=== PATIENT | female | born 1945 ===

== ENCOUNTER 2017-06-16 16:14 | Inpatient (IN) | payer MEDICARE ==
--- NOTE | 2017-06-16 16:41 | ED PDOC ---
HPI: General Adult Time Seen by Provider: 06/16/17 16:38 Chief Complaint (Nursing): Altered Mental Status Chief Complaint (Provider): AMS History Per: Patient (71 Y/O FEMALE RECENT D/C FROM [facility] TO ASSISTED BROUGHT TO ED FOR EVALUATION AFTER ASSISTED CALLED DAUGHTER. PATIENT HAS H/O DEMENTIA/ DIABETES AND DAUGHTER IS ATTEMPTING TO OBTAIN POWER OF BACK HANGER. NO OTHER COMPLAINTS. PATIENT UNSURE WHY SHE WAS IN [facility].) Past Medical History Reviewed: Historical Data, Nursing Documentation, Vital Signs Vital Signs: Last Vital Signs Temp 98.0 F 06/16/17 16:19 Pulse 94 H 06/16/17 16:19 Resp 16 06/16/17 16:19 BP 126/48 L 06/16/17 16:19 Pulse Ox 96 06/16/17 16:41 - Family History Family History: States: No Known Family Hx - Home Medications Home Medications: Ambulatory Orders Medication Instructions Recorded Unobtainable 06/16/17 - Allergies Allergies/Adverse Reactions: Allergies Allergy/AdvReac Type Severity Reaction Status Date / Time Penicillins Allergy RASH Verified 06/16/17 16:19 Review of Systems ROS Statement: Except As Marked, All Systems Reviewed And Found Negative Physical Exam - Reviewed Nursing Documentation Reviewed: Yes Vital Signs Reviewed: Yes - Physical Exam Appears: Positive for: Well, Non-toxic, No Acute Distress Head Exam: Positive for: ATRAUMATIC, NORMAL INSPECTION, NORMOCEPHALIC Skin: Positive for: Normal Color, Warm, DRY Eye Exam: Positive for: EOMI, Normal appearance, PERRL ENT: Positive for: Normal ENT Inspection Neck: Positive for: Normal, Painless ROM Cardiovascular/Chest: Positive for: Regular Rate, Rhythm Respiratory: Positive for: CNT, Normal Breath Sounds Gastrointestinal/Abdominal: Positive for: Normal Exam, Bowel Sounds, Soft Back: Positive for: Normal Inspection Extremity: Positive for: Normal ROM Neurologic/Psych: Positive for: Alert, Oriented - Laboratory Results Result Diagrams: 06/16/17 18:00 06/16/17 18:00 - ECG O2 Sat by Pulse Oximetry: 96 - Progress ED Course And Treament: DISCUSSED WITH DAUGHTER [phone] PATIENT HAS H/O DEMENTIA/DIABETES AND WAS ADMITTED TO [facility] FOR HYPERGLYCEMIA. PATIENT WAS TRANSFERRED TO [facility] BUT WAS D/C HOME AND FOUND AT HOMELESS ASSISTED. DAUGHTER UPSET AND STATES SHE IS IN PROCESS OF OBTAINING POWER OF BACK HANGER. DOES NOT FEEL PATIENT CAN BE D/C HOME. AT CURRENT MOMENT, DAUGHTER IS LIVING WITH FRIEND AND IS AWAITING APPROVAL FOR APARTMENT. DAUGHTER AND OTHER WERE ORIGINALLY LIVING IN [place] IN [facility]. NS 1 LITER 500 ML PER HOUR ADMITTED TO DR. HERNÁNDEZ CT HEAD: IMPRESSION: No definite acute intracranial hemorrhage, mass effect or cortical edema. Follow -up MRI or CT are available if clinically warranted. Potential normal pressure hydrocephalus. Central atrophy is the differential diagnosis. WILL OBTAIN NEURO CONSULT FOR NORMOHYDROCEPHALUS FOUND ON CT WILL OBTAIN PSYCH CONSULT FOR ALTERED MENTAL STATUS/POSSIBLE DEMENTIA. Disposition - Clinical Impression Clinical Impression: Altered mental status, Normal pressure hydrocephalus - Patient ED Disposition Is Patient to be Admitted: Yes - Disposition Disposition Time: 19:29 Condition: FAIR Forms: [employer] (Upper Sorbian) - Pt Status Changed To: Hospital Disposition Of: Inpatient - Admit Certification Admit to Inpatient:: After my assessment, the patient will require hospitalization for at least two midnights. This is because of the severity of symptoms shown, intensity of services needed, and/or the medical risk in this patient being treated as an outpatient.
[2017-06-16 18:15] LABS: BASO # 0.1 K/uL (0.0-0.2); EOS # 0.1 K/uL (0.0-0.7); EOS % 0.9 % (0.0-4.0); HEMOGLOBIN 14.5 g/dL (12.0-16.0); LYMPH # 2.3 K/uL (1.0-4.3); LYMPH % 26.6 % (20.0-40.0); MEAN CELL VOLUME 86.1 fl (81.0-99.0); MEAN CORPUSCULAR HEMOGLOBIN 29.8 pg (27.0-31.0); MEAN CORPUSCULAR HGB CONC 34.6 g/dL (33.0-37.0); MEAN PLATELET VOLUME 7.8 fl (7.2-11.7); MONO # 0.5 K/uL (0.0-0.8); MONO % 5.9 % (0.0-10.0); NEUT # 5.6 K/uL (1.8-7.0); NEUT % 65.6 % (50.0-75.0); NRBC % 0.2 % (0.0-0.0); RBC 4.88 Mil/uL (3.80-5.20); RED CELL DISTRIBUTION WIDTH 14.1 % (11.5-14.5); WHITE BLOOD COUNT 8.5 K/uL (4.8-10.8)
[2017-06-16 18:26] LABS: ALBUMIN 3.7 g/dL (3.5-5.0); ALT/SGPT 31 U/L (9-52); AST/SGOT 17 U/L (14-36); BLOOD UREA NITROGEN 15 mg/dl (7-17); CALCIUM 9.5 mg/dL (8.4-10.2); GFR AFRICAN-AMERICAN > 60; GFR NON-AFRICAN AMERICAN > 60
--- NOTE | 2017-06-16 18:48 | CT ---
PROCEDURE: CT HEAD WITHOUT CONTRAST. HISTORY: ams COMPARISON: None available. TECHNIQUE: Axial computed tomography images were obtained through the head/brain without intravenous contrast. Radiation dose: Total exam DLP = 1672.80 mGy-cm. This CT exam was performed using one or more of the following dose reduction techniques: Automated exposure control, adjustment of the mA and/or kV according to patient size, and/or use of iterative reconstruction technique. FINDINGS: HEMORRHAGE: No intracranial hemorrhage. BRAIN: Good corticomedullary differentiation is seen. Diffuse expansion of the ventriculosulcal and cisternal spaces is appreciated with white matter lucency compatible with diffuse cerebral atrophy and chronic microangiopathy. No suspicious extra-axial fluid collection is identified and the midline brain anatomy appears grossly nonfocal as imaged. There is no mass effect throughout. VENTRICLES: Ventricular volume is expanded data context to the cisternal and sulcal prominence in a pattern that is suspicious for potential normal pressure hydrocephalus. Clinically correlate further. CALVARIUM: Unremarkable. PARANASAL SINUSES: Right maxi sinus polyp or cyst noted. MASTOID AIR CELLS: Unremarkable as visualized. No inflammatory changes. OTHER FINDINGS: None. IMPRESSION: No definite acute intracranial hemorrhage, mass effect or cortical edema. Follow-up MRI or CT are available if clinically warranted. Potential normal pressure hydrocephalus. Central atrophy is the differential diagnosis.
[2017-06-16] MEDS ORDERED: Sodium Chloride 0.9% 1,000 ML IV STA (18:59)
[2017-06-16 22:20] LABS: URINE BACTERIA FEW (<OCC); URINE BILIRUBIN NEGATIVE (NEGATIVE); URINE BLOOD NEGATIVE (NEGATIVE); URINE CLARITY CLEAR (Clear); URINE COLOR YELLOW (YELLOW); URINE GLUCOSE (UA) >=500 mg/dL (Normal); URINE LEUKOCYTE ESTERASE TRACE Leu/uL (Negative); URINE NITRATE POSITIVE (NEGATIVE); URINE PROTEIN NEGATIVE (NEGATIVE); URINE UROBILINOGEN 0.2-1.0 mg/dL (0.2-1.0)
--- NOTE | 2017-06-16 23:06 | RAD ---
HISTORY: ROUTINE COMPARISON: No prior. TECHNIQUE: Chest PA and lateral FINDINGS: LUNGS: No active pulmonary disease. PLEURA: No significant pleural effusion identified. No pneumothorax apparent. CARDIOVASCULAR: Normal. OSSEOUS STRUCTURES: No significant abnormalities. VISUALIZED UPPER ABDOMEN: Normal. OTHER FINDINGS: None. IMPRESSION: No acute cardiopulmonary disease appreciated.
[2017-06-17] MEDS: Azithromycin 500 MG in Sodium Chloride 0.9% 250 ML IVPB SCH ×3 (01:00→23:50)
[2017-06-17] MEDS: Dextrose 5%/0.45% NS 1,000 ML IV SCH ×2 (01:36→16:50)
[2017-06-17] MEDS: Insulin Lispro (humaLOG) 100 Units/ml Inj SC SCH ×3 (12:07→23:49)
--- NOTE | 2017-06-17 13:52 | CP.PCM.CON ---
History of Present Illness - History of Present Illness History of Present Illness: Psychiatry consult note CC: "My daughter brought me here." HPI: 71 yo female w/ h/o DM, HTN, HLD, Dementia, was previously admitted to [facility], was discharged and found at a homeless senior care. As per records patient's daughter is in the process of obtained POA. Patient is a limited historian. She does not know why her daughter brought her to a hospital. She denies acute depression/anxiety/AH/VH/SI/HI and does not believe she needs acute psychiatric admission. A + O x self, location, not date. She knew [employer] [facility]. She could not state which medications she takes or give pertinent medical information. PPHx: Reports h/o depression, but patient is a poor historian PMHx: DM, HTN, HLD, Dementia, patient is a poor historian so unclear if there is more medical history ALL: PCN SHx: Denies drugs/ etoh, has a daughter who she believe is trying to take her money (possibly the POA?) MSE: A + O x 2, calm, cooperative, obese, psychomotor delayed due to body habitus, mood/affect- neutral, thought process- coherent, but non-linear/ not relevant, denies AH/VH, denies SI/HI, poor I/J Impression: 71 yo female w/ unclear history presents w/ altered mental status, denies acute psychiatric complaints, but patient likely has dementia. -Would recommend that primary team obtain collateral history from patient's family to determine her baseline of functioning and disposition -Would recommend neurology consult; if they are in agreement, patient may benefit from starting Aricept or Namenda -Would recommend that primary team obtain [facility] records [facility] -At this time, acute psychiatric admission does not seem indicated; please call for re-consult if patient's behavior or symptoms change Past Patient History - Past Medical History & Family History Past Medical History?: Yes - Past Social History Smoking Status: Never Smoked - NEUROLOGICAL Hx Dementia: Yes - ENDOCRINE/METABOLIC Hx Diabetes Mellitus Type 2: Yes - HEMATOLOGICAL/ONCOLOGICAL Hx AIDS: No Hx Human Immunodeficiency Virus (HIV): No - MUSCULOSKELETAL/RHEUMATOLOGICAL Hx Falls: No - PSYCHIATRIC Hx Substance Use: No (unknown) Meds Allergies/Adverse Reactions: Allergies Allergy/AdvReac Type Severity Reaction Status Date / Time Penicillins Allergy RASH Verified 06/16/17 16:19 - Medications Medications: Current Medications Azithromycin 500 mg/ Sodium (Chloride) 250 mls @ 250 mls/hr IVPB DAILY@0100 [facility] PRN Reason: Protocol Last Admin: 06/17/17 01:36 Dose: 250 mls/hr Dextrose/Sodium Chloride (Dextrose 5%/0.45% Ns 1000 Ml) 1,000 mls @ 80 mls/hr IV .[id number] [facility] Stop: 06/18/17 01:02 Last Admin: 06/17/17 01:36 Dose: 80 mls/hr Insulin Human Lispro (Humalog) 0 units SC ACHS [facility] PRN Reason: Protocol Last Admin: 06/17/17 12:07 Dose: Not Given Results - Vital Signs Recent Vital Signs: Last Vital Signs Temp 97.9 F 06/17/17 12:45 Pulse 86 06/17/17 12:45 Resp 18 06/17/17 12:45 BP 164/91 H 06/17/17 12:45 Pulse Ox 99 06/17/17 12:45 - Labs Result Diagrams: 06/16/17 18:00 06/16/17 18:00 Labs: Laboratory Results - last 24 hr 06/16/17 06/16/17 06/16/17 17:21 18:00 18:00 WBC 8.5 RBC 4.88 Hgb 14.5 Hct 42.0 MCV 86.1 MCH 29.8 MCHC 34.6 RDW 14.1 Plt Count 301 MPV 7.8 Neut % (Auto) 65.6 Lymph % (Auto) 26.6 [place] % (Auto) 5.9 Eos % (Auto) 0.9 Baso % (Auto) 1.0 Neut # (Auto) 5.6 Lymph # (Auto) 2.3 [place] # (Auto) 0.5 Eos # (Auto) 0.1 Baso # (Auto) 0.1 Sodium 140 Potassium 3.7 Chloride 102 Carbon Dioxide 25 Anion Gap 17 BUN 15 Creatinine 0.7 Est GFR ( Amer) > 60 Est GFR (Non-Af Amer) > 60 POC Glucose (mg/dL) 319 H Random Glucose 371 H Calcium 9.5 Total Bilirubin 0.7 AST 17 ALT 31 Alkaline Phosphatase 83 Total Protein 7.2 Albumin 3.7 Globulin 3.5 Albumin/Globulin Ratio 1.0 Urine Color Urine Clarity Urine pH Ur Specific [place] Urine Protein Urine Glucose (UA) Urine Ketones Urine Blood Urine Nitrate Urine Bilirubin Urine Urobilinogen Ur Leukocyte Esterase Urine RBC (Auto) Urine Microscopic WBC Urine Bacteria 06/16/17 06/16/17 06/17/17 22:00 22:16 05:51 WBC RBC Hgb Hct MCV MCH MCHC RDW Plt Count MPV Neut % (Auto) Lymph % (Auto) [place] % (Auto) Eos % (Auto) Baso % (Auto) Neut # (Auto) Lymph # (Auto) [place] # (Auto) Eos # (Auto) Baso # (Auto) Sodium Potassium Chloride Carbon Dioxide Anion Gap BUN Creatinine Est GFR ( Amer) Est GFR (Non-Af Amer) POC Glucose (mg/dL) 298 H 304 H Random Glucose Calcium Total Bilirubin AST ALT Alkaline Phosphatase Total Protein Albumin Globulin Albumin/Globulin Ratio Urine Color Yellow Urine Clarity Clear Urine pH 6.0 Ur Specific [place] 1.026 Urine Protein Negative Urine Glucose (UA) >=500 Urine Ketones Trace Urine Blood Negative Urine Nitrate Positive H Urine Bilirubin Negative Urine Urobilinogen 0.2-1.0 Ur Leukocyte Esterase Trace Urine RBC (Auto) 1 Urine Microscopic WBC 7 H Urine Bacteria Few H 06/17/17 11:07 WBC RBC Hgb Hct MCV MCH MCHC RDW Plt Count MPV Neut % (Auto) Lymph % (Auto) [place] % (Auto) Eos % (Auto) Baso % (Auto) Neut # (Auto) Lymph # (Auto) [place] # (Auto) Eos # (Auto) Baso # (Auto) Sodium Potassium Chloride Carbon Dioxide Anion Gap BUN Creatinine Est GFR ( Amer) Est GFR (Non-Af Amer) POC Glucose (mg/dL) 345 H Random Glucose Calcium Total Bilirubin AST ALT Alkaline Phosphatase Total Protein Albumin Globulin Albumin/Globulin Ratio Urine Color Urine Clarity Urine pH Ur Specific [place] Urine Protein Urine Glucose (UA) Urine Ketones Urine Blood Urine Nitrate Urine Bilirubin Urine Urobilinogen Ur Leukocyte Esterase Urine RBC (Auto) Urine Microscopic WBC Urine Bacteria
--- NOTE | 2017-06-17 13:54 | CP.PCM.CON ---
History of Present Illness - History of Present Illness History of Present Illness: Neurology Consult Note: Mrs. Beckford is a 71-year-old woman with a history of dementia, who was brought in to the ED from the halfway for altered mental status. Labs showed hyperglycemia in the 300's range, and a UTI. She was started on azithromycin. Neurology was consulted for the encephalopathy. CT head showed potential normal pressure hydrocephalus. The patient informed me that she has been diagnosed with NPH before and was to be scheduled with neurosurgery, but this has not happened yet. She denied incontinence, did complain of difficulty with ambulation. Past Patient History - Past Medical History & Family History Past Medical History?: Yes - Past Social History Smoking Status: Never Smoked - NEUROLOGICAL Hx Dementia: Yes - ENDOCRINE/METABOLIC Hx Diabetes Mellitus Type 2: Yes - HEMATOLOGICAL/ONCOLOGICAL Hx AIDS: No Hx Human Immunodeficiency Virus (HIV): No - MUSCULOSKELETAL/RHEUMATOLOGICAL Hx Falls: No - PSYCHIATRIC Hx Substance Use: No (unknown) Meds Allergies/Adverse Reactions: Allergies Allergy/AdvReac Type Severity Reaction Status Date / Time Penicillins Allergy RASH Verified 06/16/17 16:19 - Medications Medications: Current Medications Azithromycin 500 mg/ Sodium (Chloride) 250 mls @ 250 mls/hr IVPB DAILY@0100 [facility] PRN Reason: Protocol Last Admin: 06/17/17 01:36 Dose: 250 mls/hr Dextrose/Sodium Chloride (Dextrose 5%/0.45% Ns 1000 Ml) 1,000 mls @ 80 mls/hr IV .[id number] [facility] Stop: 06/18/17 01:02 Last Admin: 06/17/17 01:36 Dose: 80 mls/hr Insulin Human Lispro (Humalog) 0 units SC ACHS [facility] PRN Reason: Protocol Last Admin: 06/17/17 12:07 Dose: Not Given Physical Exam - Neurological Exam Neurological exam: Abnormal Gait, Altered, CN II-XII Intact, Reflexes Normal Additional comments: Oriented to person/place, but not time. Poor recall. Poor attention. Fund of knowledge mostly intact. Moves all extremities. Ataxic with HTS. Romberg was negative. Plantar responses were downgoing. Results - Vital Signs Recent Vital Signs: Last Vital Signs Temp 97.9 F 06/17/17 12:45 Pulse 86 06/17/17 12:45 Resp 18 06/17/17 12:45 BP 164/91 H 06/17/17 12:45 Pulse Ox 99 06/17/17 12:45 - Labs Result Diagrams: 06/16/17 18:00 06/16/17 18:00 Labs: Laboratory Results - last 24 hr 06/16/17 06/16/17 06/16/17 17:21 18:00 18:00 WBC 8.5 RBC 4.88 Hgb 14.5 Hct 42.0 MCV 86.1 MCH 29.8 MCHC 34.6 RDW 14.1 Plt Count 301 MPV 7.8 Neut % (Auto) 65.6 Lymph % (Auto) 26.6 [place] % (Auto) 5.9 Eos % (Auto) 0.9 Baso % (Auto) 1.0 Neut # (Auto) 5.6 Lymph # (Auto) 2.3 [place] # (Auto) 0.5 Eos # (Auto) 0.1 Baso # (Auto) 0.1 Sodium 140 Potassium 3.7 Chloride 102 Carbon Dioxide 25 Anion Gap 17 BUN 15 Creatinine 0.7 Est GFR ( Amer) > 60 Est GFR (Non-Af Amer) > 60 POC Glucose (mg/dL) 319 H Random Glucose 371 H Calcium 9.5 Total Bilirubin 0.7 AST 17 ALT 31 Alkaline Phosphatase 83 Total Protein 7.2 Albumin 3.7 Globulin 3.5 Albumin/Globulin Ratio 1.0 Urine Color Urine Clarity Urine pH Ur Specific [place] Urine Protein Urine Glucose (UA) Urine Ketones Urine Blood Urine Nitrate Urine Bilirubin Urine Urobilinogen Ur Leukocyte Esterase Urine RBC (Auto) Urine Microscopic WBC Urine Bacteria 06/16/17 06/16/17 06/17/17 22:00 22:16 05:51 WBC RBC Hgb Hct MCV MCH MCHC RDW Plt Count MPV Neut % (Auto) Lymph % (Auto) [place] % (Auto) Eos % (Auto) Baso % (Auto) Neut # (Auto) Lymph # (Auto) [place] # (Auto) Eos # (Auto) Baso # (Auto) Sodium Potassium Chloride Carbon Dioxide Anion Gap BUN Creatinine Est GFR ( Amer) Est GFR (Non-Af Amer) POC Glucose (mg/dL) 298 H 304 H Random Glucose Calcium Total Bilirubin AST ALT Alkaline Phosphatase Total Protein Albumin Globulin Albumin/Globulin Ratio Urine Color Yellow Urine Clarity Clear Urine pH 6.0 Ur Specific [place] 1.026 Urine Protein Negative Urine Glucose (UA) >=500 Urine Ketones Trace Urine Blood Negative Urine Nitrate Positive H Urine Bilirubin Negative Urine Urobilinogen 0.2-1.0 Ur Leukocyte Esterase Trace Urine RBC (Auto) 1 Urine Microscopic WBC 7 H Urine Bacteria Few H 06/17/17 11:07 WBC RBC Hgb Hct MCV MCH MCHC RDW Plt Count MPV Neut % (Auto) Lymph % (Auto) [place] % (Auto) Eos % (Auto) Baso % (Auto) Neut # (Auto) Lymph # (Auto) [place] # (Auto) Eos # (Auto) Baso # (Auto) Sodium Potassium Chloride Carbon Dioxide Anion Gap BUN Creatinine Est GFR ( Amer) Est GFR (Non-Af Amer) POC Glucose (mg/dL) 345 H Random Glucose Calcium Total Bilirubin AST ALT Alkaline Phosphatase Total Protein Albumin Globulin Albumin/Globulin Ratio Urine Color Urine Clarity Urine pH Ur Specific [place] Urine Protein Urine Glucose (UA) Urine Ketones Urine Blood Urine Nitrate Urine Bilirubin Urine Urobilinogen Ur Leukocyte Esterase Urine RBC (Auto) Urine Microscopic WBC Urine Bacteria Assessment & Plan (1) Normal pressure hydrocephalus Assessment and Plan: I recommend starting diamox 500 mg BID and consulting with neurosurgery to determine if the patient is a good surgical candidate. Her mental status changes are fluctuating, and are likely related to the metabolic derangements, possible infection and underlying NPH. Neurology will follow. Thank you. Status: Acute Priority: High
--- NOTE | 2017-06-17 18:07 | CARD ---
APPROVED REPORT EKG Measurement Heart [id number] <Conclusion> Normal sinus rhythm Normal ECG
[2017-06-18] MEDS: Insulin Lispro (humaLOG) 100 Units/ml Inj SC SCH ×4 (08:53→23:13)
--- NOTE | 2017-06-18 11:42 | CP.PCM.PN ---
Subjective - Date & Time of Evaluation Date of Evaluation: 06/18/17 Time of Evaluation: 11:43 - Subjective Subjective: ATTEMPTING TO [facility] FROM HOSPITAL ON 1 TO 1 NURSING CARE AWAIT DAUGHTER'S VISIT INORDER TO DECIDE DISPOSITION REFUSING ALL EVALUATION Objective - Vital Signs/Intake and Output Vital Signs (last 24 hours): Temp Pulse Resp BP Pulse Ox 98.2 F 81 20 132/68 97 06/18/17 08:13 06/18/17 08:13 06/18/17 08:13 06/18/17 08:13 06/18/17 08:13 - Medications Medications: Current Medications Alprazolam (Xanax) 0.25 mg PO Q12 PRN PRN Reason: Anxiety Stop: 06/24/17 16:17 Azithromycin 500 mg/ Sodium (Chloride) 250 mls @ 250 mls/hr IVPB DAILY@0100 [facility] PRN Reason: Protocol Last Admin: 06/17/17 01:36 Dose: 250 mls/hr Insulin Human Lispro (Humalog) 0 units SC ACHS [facility] PRN Reason: Protocol Last Admin: 06/18/17 08:53 Dose: Not Given Metformin HCl (Glucophage) 1,000 mg PO BIDWM [facility] Last Admin: 06/18/17 08:53 Dose: Not Given Nystatin (Nystop Topical Powder) 1 applic TOP TID [facility] Last Admin: 06/18/17 08:53 Dose: Not Given - Labs Labs: 06/16/17 18:00 06/16/17 18:00 - Constitutional Appears: Confused, Chronically Ill - Head Exam Head Exam: ATRAUMATIC, NORMAL INSPECTION, NORMOCEPHALIC - Eye Exam Eye Exam: EOMI, Normal appearance, PERRL Pupil Exam: NORMAL ACCOMODATION, PERRL - ENT Exam ENT Exam: Mucous Membranes Moist, Normal Exam - Neck Exam Neck Exam: Full ROM, Normal Inspection. absent: Lymphadenopathy - Respiratory Exam Respiratory Exam: Clear to Ausculation Bilateral, NORMAL BREATHING PATTERN - Cardiovascular Exam Cardiovascular Exam: REGULAR RHYTHM, +S1, +S2. absent: Murmur - GI/Abdominal Exam GI & Abdominal Exam: Soft, Normal Bowel Sounds. absent: Tenderness - Rectal Exam Rectal Exam: NORMAL INSPECTION - Extremities Exam Extremities Exam: Full ROM, Normal Capillary Refill, Normal Inspection. absent : Joint Swelling, Pedal Edema - Back Exam Back Exam: NORMAL INSPECTION - Neurological Exam Neurological Exam: Alert, Awake, CN II-XII Intact, Normal Gait - Psychiatric Exam Psychiatric exam: Agitated, Anxious - Skin Skin Exam: Dry, Intact, Normal Color, Warm Assessment and Plan - Assessment and Plan (Free Text) Assessment: DM TYPE 2--WITH HYPERGLYCEMIA DEMENTIA NORMAL PRESSURE HYDROCEPHALUS--CHRONIC Plan: TRANSFER TO REGULAR FLOOR AWAIT RESIDENTIAL REAL ESTATE SALES MANAGER INTERVENTION RE-DISPOSITION
[2017-06-18] MEDS: acetaZOLAMIDE 500 mg SR Cap PO SCH ×2 (16:38→16:42)
[2017-06-19] MEDS: Azithromycin 500 MG in Sodium Chloride 0.9% 250 ML IVPB SCH (00:21)
[2017-06-19 08:04] VITALS: RESP 19; O2SAT 97
[2017-06-19] MEDS: acetaZOLAMIDE 500 mg SR Cap PO SCH ×2 (10:07→16:20)
[2017-06-19] MEDS: Insulin Lispro (humaLOG) 100 Units/ml Inj SC SCH ×4 (10:08→21:39)
--- NOTE | 2017-06-19 11:18 | CP.PCM.PN ---
Subjective - Date & Time of Evaluation Date of Evaluation: 06/19/17 Time of Evaluation: 11:18 - Subjective Subjective: CONFUSED CALMER TODAY SLEEPING Objective - Vital Signs/Intake and Output Vital Signs (last 24 hours): Temp Pulse Resp BP Pulse Ox 97.5 F L 66 19 134/83 97 06/19/17 08:04 06/19/17 08:04 06/19/17 08:04 06/19/17 08:04 06/19/17 08:04 - Medications Medications: Current Medications Acetazolamide (Diamox Sequels 500 Mg Sr Cap) 500 mg PO DAILY [facility] Last Admin: 06/19/17 10:07 Dose: 500 mg Alprazolam (Xanax) 0.25 mg PO Q12 PRN PRN Reason: Anxiety Stop: 06/24/17 16:17 Azithromycin 500 mg/ Sodium (Chloride) 250 mls @ 250 mls/hr IVPB DAILY@0100 [facility] PRN Reason: Protocol Last Admin: 06/19/17 00:21 Dose: 250 mls/hr Insulin Human Lispro (Humalog) 0 units SC ACHS [facility] PRN Reason: Protocol Last Admin: 06/19/17 10:08 Dose: 4 units Metformin HCl (Glucophage) 1,000 mg PO BIDWM [facility] Last Admin: 06/19/17 10:07 Dose: 1,000 mg Nystatin (Nystop Topical Powder) 1 applic TOP TID [facility] Last Admin: 06/19/17 10:08 Dose: 1 applic - Labs Labs: 06/16/17 18:00 06/16/17 18:00 - Constitutional Appears: No Acute Distress - Head Exam Head Exam: ATRAUMATIC, NORMAL INSPECTION, NORMOCEPHALIC - Eye Exam Eye Exam: EOMI, Normal appearance, PERRL Pupil Exam: NORMAL ACCOMODATION, PERRL - ENT Exam ENT Exam: Mucous Membranes Moist, Normal Exam - Neck Exam Neck Exam: Full ROM, Normal Inspection. absent: Lymphadenopathy - Respiratory Exam Respiratory Exam: Clear to Ausculation Bilateral, NORMAL BREATHING PATTERN - Cardiovascular Exam Cardiovascular Exam: REGULAR RHYTHM, +S1, +S2. absent: Murmur - GI/Abdominal Exam GI & Abdominal Exam: Soft, Normal Bowel Sounds. absent: Tenderness - Rectal Exam Rectal Exam: NORMAL INSPECTION - Extremities Exam Extremities Exam: Full ROM, Normal Capillary Refill, Normal Inspection. absent : Joint Swelling, Pedal Edema - Back Exam Back Exam: NORMAL INSPECTION - Neurological Exam Neurological Exam: Alert, Awake, CN II-XII Intact, Normal Gait, Oriented x3 - Psychiatric Exam Additional comments: CONFUSED WITH EPISODES OF AGITATION - Skin Skin Exam: Dry, Intact, Normal Color, Warm Assessment and Plan - Assessment and Plan (Free Text) Assessment: DEMENTIA DM NORMAL PRESSURE HYDROCEPHALUS--CHRONIC Plan: CONTINUE RX ORDERED DIESEL MECHANIC HELPER FOR DISPOSITION
[2017-06-19 16:16] VITALS: TEMP 97.7
--- NOTE | 2017-06-20 07:48 | HP ---
HISTORY OF PRESENT ILLNESS: Ms. Beckford is a 71-year-old female who was recently discharged from [facility] and brought to the emergency room because of altered mental status. Daughter had called and brought to the ER. She has a history of dementia and normal pressure hydrocephalus and recently signed out of Skilled Nursing. She is refusing all forms of treatment including MRI of the brain and blood work. Once I discussed the case with her, she agreed that she will stay in the hospital for at least the next 24 hours and then will move into an apartment with her daughter who also happened to be homeless. PAST MEDICAL HISTORY: Dementia, normal pressure hydrocephalus for the past one year. No other history is obtained. PHYSICAL EXAMINATION: GENERAL: The patient is awake. She is alert, oriented to person and place, but not to time. VITAL SIGNS: Blood pressure 126/48 with a pulse of 94, respiratory rate of 18, she is afebrile, and O2 saturation 96% on room air. SKIN: Shows fair turgor. HEENT: Pupils are equal and reactive to light and accommodation. Mouth shows fair hygiene. LUNGS: Clear. HEART: Regular. No murmurs or gallops. ABDOMEN: Soft and nontender. No organomegaly. EXTREMITIES: Shows no edema or cyanosis. CENTRAL NERVOUS SYSTEM: Grossly intact. LABORATORY DATA: Remarkable for WBC of 8.5, hemoglobin 14.5, and platelet count 301,000. Sodium 140, potassium 3.7, BUN 15, creatinine 0.7, and serum glucose 371. Chest x-ray shows no acute cardiopulmonary pathology. CT scan of the head is remarkable for no hemorrhage, no mass effect, normal pressure hydrocephalus, and central atrophy. IMPRESSION: Dementia with altered mental status, normal pressure hydrocephalus, and diabetes mellitus poorly controlled because of noncompliance to medications and diet. PLAN: Psychiatry and Neurology evaluation. The patient, however, is refusing to take all her medications and compliance with therapy. She was advised to at least take medications for her sugar and for anxiety. She is willing to stay in the hospital for the next 24 hours until her daughter comes to secure a place for them to live. We will continue therapy as ordered. Danie Sanchez MD [facility] # [phone]
[2017-06-20 08:02] VITALS: BP 131/72; PULSE 87
[2017-06-20] MEDS: Insulin Lispro (humaLOG) 100 Units/ml Inj SC SCH ×2 (08:12→12:13)
--- NOTE | 2017-06-20 08:32 | CP.PCM.PN ---
Subjective - Date & Time of Evaluation Date of Evaluation: 06/20/17 Time of Evaluation: 08:32 - Subjective Subjective: NO APPARENT DISTRESS CLAIMS THAT SHE HAS AN APT WITH HER DAUGHTER AND NEEDS TO GO HOME Objective - Vital Signs/Intake and Output Vital Signs (last 24 hours): Temp Pulse Resp BP Pulse Ox 97.7 F 87 19 131/72 97 06/20/17 08:01 06/20/17 08:01 06/20/17 08:01 06/20/17 08:01 06/20/17 08:01 - Medications Medications: Current Medications Acetazolamide (Diamox Sequels 500 Mg Sr Cap) 500 mg PO DAILY [facility] Last Admin: 06/19/17 16:20 Dose: Not Given Alprazolam (Xanax) 0.5 mg PO Q12 [facility] Stop: 06/26/17 21:01 Last Admin: 06/19/17 21:41 Dose: 0.5 mg Glipizide (Glucotrol) 5 mg PO ACB [facility] Last Admin: 06/19/17 13:11 Dose: Not Given Insulin Human Lispro (Humalog) 0 units SC ACHS [facility] PRN Reason: Protocol Last Admin: 06/19/17 21:39 Dose: Not Given Metformin HCl (Glucophage) 1,000 mg PO BIDWM [facility] Last Admin: 06/19/17 16:22 Dose: Not Given Nystatin (Nystop Topical Powder) 1 applic TOP TID [facility] Last Admin: 06/19/17 16:21 Dose: 1 applic - Labs Labs: 06/16/17 18:00 06/16/17 18:00 - Constitutional Appears: No Acute Distress - Head Exam Head Exam: ATRAUMATIC, NORMAL INSPECTION, NORMOCEPHALIC - Eye Exam Eye Exam: EOMI, Normal appearance, PERRL Pupil Exam: NORMAL ACCOMODATION, PERRL - ENT Exam ENT Exam: Mucous Membranes Moist, Normal Exam - Neck Exam Neck Exam: Full ROM, Normal Inspection. absent: Lymphadenopathy - Respiratory Exam Respiratory Exam: Clear to Ausculation Bilateral, NORMAL BREATHING PATTERN - Cardiovascular Exam Cardiovascular Exam: REGULAR RHYTHM, +S1, +S2. absent: Murmur - GI/Abdominal Exam GI & Abdominal Exam: Soft, Normal Bowel Sounds. absent: Tenderness - Rectal Exam Rectal Exam: NORMAL INSPECTION - Extremities Exam Extremities Exam: Full ROM, Normal Capillary Refill, Normal Inspection. absent : Joint Swelling, Pedal Edema - Back Exam Back Exam: NORMAL INSPECTION - Neurological Exam Neurological Exam: Alert, Awake, CN II-XII Intact, Normal Gait - Skin Skin Exam: Dry, Intact, Normal Color, Warm Assessment and Plan - Assessment and Plan (Free Text) Assessment: DEMENTIA DM NORMAL PRESSURE HYDROCEPHALUS Plan: TILE SETTER APPRENTICE FOR DISPOSITION
[2017-06-20] MEDS: acetaZOLAMIDE 500 mg SR Cap PO SCH (09:11)
--- NOTE | 2017-06-20 09:42 | CP.PCM.PN ---
Subjective - Date & Time of Evaluation Date of Evaluation: 06/20/17 Time of Evaluation: 09:40 - Subjective Subjective: Ms. Beckford was seen and examined at the bedside. She is alert, oriented to place and self, and denies any headache, dizziness, lightheadedness, blurred vision and diplopia. She is able to feed herself, but has episode of elopement. She is current on 1;1 sitter for patient safety. She is able to follow simple commands with some unsteadiness of gait. There was no untoward events overnight. Objective - Vital Signs/Intake and Output Vital Signs (last 24 hours): Temp Pulse Resp BP Pulse Ox 97.7 F 87 19 131/72 97 06/20/17 08:01 06/20/17 08:01 06/20/17 08:01 06/20/17 08:01 06/20/17 08:01 - Medications Medications: Current Medications Acetazolamide (Diamox Sequels 500 Mg Sr Cap) 500 mg PO DAILY [facility] Last Admin: 06/20/17 09:11 Dose: 500 mg Alprazolam (Xanax) 0.5 mg PO Q12 [facility] Stop: 06/26/17 21:01 Last Admin: 06/20/17 09:33 Dose: 0.5 mg Glipizide (Glucotrol) 5 mg PO ACB [facility] Last Admin: 06/20/17 09:11 Dose: 5 mg Insulin Human Lispro (Humalog) 0 units SC ACHS [facility] PRN Reason: Protocol Last Admin: 06/20/17 08:12 Dose: 4 units Metformin HCl (Glucophage) 1,000 mg PO BIDWM [facility] Last Admin: 06/20/17 09:12 Dose: 1,000 mg Nystatin (Nystop Topical Powder) 1 applic TOP TID [facility] Last Admin: 06/19/17 16:21 Dose: 1 applic - Labs Labs: 06/16/17 18:00 06/16/17 18:00 - Constitutional Appears: No Acute Distress - Head Exam Head Exam: NORMAL INSPECTION - Neurological Exam Neurological Exam: Alert, Awake Neuro motor strength exam: Left Upper Extremity: 5, Right Upper Extremity: 5, Left Lower Extremity: 5, Right Lower Extremity: 5 Additional comments: She is able to answer questions and follow simple commands. Assessment and Plan (1) Normal pressure hydrocephalus Assessment & Plan: Case discussed with Dr. Aldridge, continue all current medical, physical, and occupational regimens. Recommend to follow up with Dr. Peralta ( personal neurologist) upon discharge to monitor her hydrocephalus. Status: Acute
--- NOTE | 2017-06-20 13:48 | PQF GENQUE ---
Dr. Sanchez, Please clarify the underlying cause of patient's altered mental status: i.e. due to Dementia or Encephalopathy or Multifactorial etiology etc: (if Encephalopathy is the etiology : please include the type of Encephalopathy if known). OR: Unable to determine OR: Unknown Neuro consult:. Neurology was consulted for the encephalopathy. Impression: (1) Normal pressure hydrocephalus Assessment and Plan: I recommend starting diamox 500 mg BID and consulting with neurosurgery to determine if the patient is a good surgical candidate. Her mental status changes are fluctuating, and are likely related to the metabolic derangements, possible infection and underlying NPH. Psych consult; w/ unclear history presents w/ altered mental status, denies acute psychiatric complaints, but patient likely has dementia. 1:1 Observation, Xanax PO Q12 This form is a permanent part of the medical record Clarification of your documentation is requested to better reflect the severity of illness and intensity of treatment of your patient. Indicators present [x] Specify: []unable to determine [] Specify: [] [] Specify: [] [] Specify: [] Location in the medical record that reflects the above clinical findings: [] Treatment Provided: [] PHYSICIAN'S RESPONSE Based on your medical judgment of the clinical indicators outlined above please clarify the following: [] Practitioner response [] If unable to determine, please check the box, sign and date. Present On Admission (POA) Indicator: [] Present at the time of admission [] Not present at the time of admission [] Clinically Undetermined In responding to this query, please exercise your independent professional judgment. The fact that a question is asked does not imply that any particular answer is desired or expected. Thank you for your clarification on this documentation. If you have any questions please call. * Thank you, Rubi No RN ext. #[phone] MTDD
--- NOTE | 2017-06-20 13:58 | PQF GENQUE ---
Dr. Sanchez, 2 queries: 1. Please provide a nutritional diagnosis, if known, related to the information below: i.e Morbid Obesity etc. The following clinical indicators are present in the medical record: BMI: 47.0 5ft 7in 300lbs.: listed in the EMR 2. Please include the BMI in your next progress note OR: Disagree OR: Other explanation of clinical findings This form is a permanent part of the medical record Clarification of your documentation is requested to better reflect the severity of illness and intensity of treatment of your patient. Indicators present [x] Specify: []bmi of 47--morbid obesity [] Specify: [] [] Specify: [] [] Specify: [] Location in the medical record that reflects the above clinical findings: [] Treatment Provided: [] PHYSICIAN'S RESPONSE Based on your medical judgment of the clinical indicators outlined above please clarify the following: [] Practitioner response [] If unable to determine, please check the box, sign and date. Present On Admission (POA) Indicator: [] Present at the time of admission [] Not present at the time of admission [] Clinically Undetermined In responding to this query, please exercise your independent professional judgment. The fact that a question is asked does not imply that any particular answer is desired or expected. Thank you for your clarification on this documentation. If you have any questions please call. * Thank you, Rubi No RN ext. #[phone] MTDD
--- NOTE | 2017-06-20 13:59 | CP.PCM.PCO ---
Assessment/Plan - Assessment/Plan Assessment (Free Text): Pt stable, seen and cleared for d/c home by Dr. Sanchez. Pt's daughter at bedside , states she has a hotel and is taking pt there. Rx given as per med rec. Pt states she will f/u with Dr. Peralta, her daughter is calling the office to make and appointment. Pt needs to f/u with PMD in 1 week
--- NOTE | 2017-06-20 14:05 | PQF GENQUE ---
Dr. Sanchez, 2 queries listed below: 1. Please clarify type of dementia: if known Alcohol-induced Alzheimers Drug-induced Frontal Lewy body Multi-infarct/Vascular Parkinsons Disease Pre-senile Senile Other type not specified above (please specify) Clinically unable to determine Unknown 2. Please indicate if dementia associated with: Acute confusional state/delirium Behavioral disturbance Aggressive behavior Combative behavior Violent behavior Delusional features Depressive features H and P: Hx. Dementia Impression: Dementia with altered mental status, normal pressure hydrocephalus , and diabetes mellitus poorly controlled because of noncompliance to medications and diet Psych consult: 71 yo female w/ unclear history presents w/ altered mental status, denies acute psychiatric complaints, but patient likely has dementia. This form is a permanent part of the medical record Clarification of your documentation is requested to better reflect the severity of illness and intensity of treatment of your patient. Indicators present [x] Specify: []--dementia--unknown etiology [] Specify: [] [] Specify: [] [] Specify: [] Location in the medical record that reflects the above clinical findings: [] Treatment Provided: [] PHYSICIAN'S RESPONSE Based on your medical judgment of the clinical indicators outlined above please clarify the following: [] Practitioner response [] If unable to determine, please check the box, sign and date. Present On Admission (POA) Indicator: [] Present at the time of admission [] Not present at the time of admission [] Clinically Undetermined In responding to this query, please exercise your independent professional judgment. The fact that a question is asked does not imply that any particular answer is desired or expected. Thank you for your clarification on this documentation. If you have any questions please call. * Thank you, Rubi No RN ext. #[phone] MTDD
--- NOTE | 2017-06-21 08:56 | CP.PCM.DIS ---
Provider - Provider Date of Admission: 06/17/17 15:17 Attending physician: Danie Sanchez MD Time Spent in preparation of Discharge (in minutes): 30 Diagnosis - Discharge Diagnosis (1) Dementia Status: Acute (2) Morbid obesity Status: Acute (3) Hydrocephalus Status: Acute (4) Diabetes 1.5, managed as type 2 Status: Acute (5) Altered mental status Status: Acute (6) Normal pressure hydrocephalus Status: Acute Priority: High Hospital Course - Lab Results Lab Results: Micro Results 06/17/17 06:15 Urine,Clean Catch Urine Culture - Final Escherichia Coli Most Recent Lab Values WBC 8.5 K/uL (4.8-10.8) 06/16/17 18:00 RBC 4.88 Mil/uL (3.80-5.20) 06/16/17 18:00 Hgb 14.5 g/dL (12.0-16.0) 06/16/17 18:00 Hct 42.0 % (34.0-47.0) 06/16/17 18:00 MCV 86.1 fl (81.0-99.0) 06/16/17 18:00 MCH 29.8 pg (27.0-31.0) 06/16/17 18:00 MCHC 34.6 g/dL (33.0-37.0) 06/16/17 18:00 RDW 14.1 % (11.5-14.5) 06/16/17 18:00 Plt Count 301 K/uL (130-400) 06/16/17 18:00 MPV 7.8 fl (7.2-11.7) 06/16/17 18:00 Neut % (Auto) 65.6 % (50.0-75.0) 06/16/17 18:00 Lymph % (Auto) 26.6 % (20.0-40.0) 06/16/17 18:00 [place] % (Auto) 5.9 % (0.0-10.0) 06/16/17 18:00 Eos % (Auto) 0.9 % (0.0-4.0) 06/16/17 18:00 Baso % (Auto) 1.0 % (0.0-2.0) 06/16/17 18:00 Neut # (Auto) 5.6 K/uL (1.8-7.0) 06/16/17 18:00 Lymph # (Auto) 2.3 K/uL (1.0-4.3) 06/16/17 18:00 [place] # (Auto) 0.5 K/uL (0.0-0.8) 06/16/17 18:00 Eos # (Auto) 0.1 K/uL (0.0-0.7) 06/16/17 18:00 Baso # (Auto) 0.1 K/uL (0.0-0.2) 06/16/17 18:00 Sodium 140 mmol/l (132-148) 06/16/17 18:00 Potassium 3.7 MMOL/L (3.6-5.0) 06/16/17 18:00 Chloride 102 mmol/L (98-107) 06/16/17 18:00 Carbon Dioxide 25 mmol/L (22-30) 06/16/17 18:00 Anion Gap 17 (10-20) 06/16/17 18:00 BUN 15 mg/dl (7-17) 06/16/17 18:00 Creatinine 0.7 mg/dl (0.7-1.2) 06/16/17 18:00 Est GFR ( Amer) > 60 06/16/17 18:00 Est GFR (Non-Af Amer) > 60 06/16/17 18:00 POC Glucose (mg/dL) 345 mg/dL (65-110) H 06/20/17 11:12 Random Glucose 371 mg/dL (65-105) H 06/16/17 18:00 Calcium 9.5 mg/dL (8.4-10.2) 06/16/17 18:00 Total Bilirubin 0.7 mg/dl (0.2-1.3) 06/16/17 18:00 AST 17 U/L (14-36) 06/16/17 18:00 ALT 31 U/L (9-52) 06/16/17 18:00 Alkaline Phosphatase 83 U/L (38-126) 06/16/17 18:00 Total Protein 7.2 G/DL (6.3-8.2) 06/16/17 18:00 Albumin 3.7 g/dL (3.5-5.0) 06/16/17 18:00 Globulin 3.5 gm/dL (2.2-3.9) 06/16/17 18:00 Albumin/Globulin Ratio 1.0 (1.0-2.1) 06/16/17 18:00 Urine Color Yellow (YELLOW) 06/16/17 22:00 Urine Clarity Clear (Clear) 06/16/17 22:00 Urine pH 6.0 (5.0-8.0) 06/16/17 22:00 Ur Specific [place] 1.026 (1.003-1.030) 06/16/17 22:00 Urine Protein Negative mg/dL (NEGATIVE) 06/16/17 22:00 Urine Glucose (UA) >=500 mg/dL (Normal) 06/16/17 22:00 Urine Ketones Trace mg/dL (NEGATIVE) 06/16/17 22:00 Urine Blood Negative (NEGATIVE) 06/16/17 22:00 Urine Nitrate Positive (NEGATIVE) H 06/16/17 22:00 Urine Bilirubin Negative (NEGATIVE) 06/16/17 22:00 Urine Urobilinogen 0.2-1.0 mg/dL (0.2-1.0) 06/16/17 22:00 Ur Leukocyte Esterase Trace Samir/uL (Negative) 06/16/17 22:00 Urine RBC (Auto) 1 /hpf (0-3) 06/16/17 22:00 Urine Microscopic WBC 7 /hpf (0-5) H 06/16/17 22:00 Urine Bacteria Few (<OCC) H 06/16/17 22:00 - Hospital Course Hospital Course: CALMER CONFUSED REFUSES ALL WORKUP Discharge Exam - Head Exam Head Exam: NORMAL INSPECTION - Eye Exam Eye Exam: EOMI, Normal appearance, PERRL Pupil Exam: NORMAL ACCOMODATION, PERRL - GI/Abdominal Exam GI & Abdominal Exam: Normal Bowel Sounds - Rectal Exam Rectal Exam: NORMAL INSPECTION - Neurological Exam Neurological exam: Alert, CN II-XII Intact, Normal Gait, Reflexes Normal - Skin Skin Exam: Dry, Intact, Normal Color, Warm Discharge Plan - Discharge Medications Prescriptions: acetaZOLAMIDE [Acetazolamide] 500 mg PO DAILY #14 capsule.er Ciprofloxacin [Cipro] 500 mg PO Q12 #10 tab MetFORMIN [glucoPHAGE] 1,000 mg PO BIDWM #30 tab GlipiZIDE [Glucotrol] 5 mg PO ACB #30 tab - Follow Up Plan Condition: FAIR Disposition: HOME/ ROUTINE Instructions: Altered Mental Status (DC), Diabetes Type 2 (DC) Additional Instructions: follow up with primary MD and dr contreras in 1 week. Referrals: [facility] [place] [Outside] John Perea MD [Staff Provider] -
== END 2017-06-20 14:41 | disposition home or self-care (01) | DRG 884 ==
LOC: H.ER 16:14 → H.ERHOLD 19:16 → H.TEL 23:57 → OBSVTOIN 06-17 15:17 → H.MEDSURG1 06-18 17:00
PROVIDERS: ADMIT Internal Medicine Pulmonary Disease; ATTEND Internal Medicine Pulmonary Disease
DX: F03.90 Unspecified dementia, unspecified severity, without behavioral disturbance, psychotic disturbance, mood disturbance, and anxiety (principal); G91.2 (Idiopathic) normal pressure hydrocephalus; E11.65 Type 2 diabetes mellitus with hyperglycemia; N39.0 Urinary tract infection, site not specified; Z68.42 Body mass index [BMI] 45.0-49.9, adult; E78.5 Hyperlipidemia, unspecified; I10 Essential (primary) hypertension; Z91.11 Patient's noncompliance with dietary regimen; Z91.14 Patient's other noncompliance with medication regimen; E66.01 Morbid (severe) obesity due to excess calories